=== PATIENT | male | born 1970 | race Two or more races ===

== ENCOUNTER 2017-02-25 17:14 | Emergency (ER) | payer OTHER ==
[~2017-02-25] VITALS: Ht 172.7 cm; Wt 74.8 kg
[~2017-02-25 17:14] MED LIST: NKM
[2017-02-25 17:15] VITALS: BP 144/88
[2017-02-25] MEDS ORDERED: Norco 5mg/325mg tab PO ONE (17:45)
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
[2017-02-25] MEDS ORDERED: IBUPROFEN600 MG ORAL (18:34)
[2017-02-25] MEDS ORDERED: CYCLOBENZAPRINE10 MG ORAL (18:34)
[2017-02-25 19:00] VITALS: BP 136/78
--- NOTE | 2017-02-26 10:10 | Diagnostic Imaging Report ---
Indication: Headache Technique: Contiguous 5 mm thick transaxial imaging of the head obtained in a Siemens Sensation [address] scanner. Soft tissue and bone windows generated. Total Dose length Product (DLP): [address] Dose Index Volume (CTDIvol): 70.38, 0.15 mGy Comparison: none Findings: The size and configuration of the cortical sulci, basal cisterns, and ventricles are within normal limits for age. There is no mass effect, midline shift, or edema identified. There is no evidence of acute hemorrhage or abnormal intra-axial or extra-axial fluid collections. The bones and soft tissues are unremarkable. Impression: No mass effect, edema or acute bleed. [facility] has communicated the preliminary results to the Emergency Department. Their findings are largely concordant with this report. The CT scanner at [facility] is accredited by the [employer] and the scans are performed using dose optimization techniques as appropriate to a performed exam including Automatic Exposure control.
--- NOTE | 2017-02-26 10:10 | Diagnostic Imaging Report ---
Indication: Headache Technique: Contiguous 5 mm thick transaxial imaging of the head obtained in a Siemens Sensation [address] scanner. Soft tissue and bone windows generated. Total Dose length Product (DLP): [address] Dose Index Volume (CTDIvol): 70.38, 0.15 mGy Comparison: none Findings: The size and configuration of the cortical sulci, basal cisterns, and ventricles are within normal limits for age. There is no mass effect, midline shift, or edema identified. There is no evidence of acute hemorrhage or abnormal intra-axial or extra-axial fluid collections. The bones and soft tissues are unremarkable. Impression: No mass effect, edema or acute bleed. [facility] has communicated the preliminary results to the Emergency Department. Their findings are largely concordant with this report. The CT scanner at [facility] is accredited by the [employer] and the scans are performed using dose optimization techniques as appropriate to a performed exam including Automatic Exposure control.
--- NOTE | 2017-02-26 10:20 | Diagnostic Imaging Report ---
Indication: Neck pain. Technique: Continuous helical imaging of the cervical spine was obtained transaxially from the skull base to the upper thoracic spine. 2-D coronal and sagittal reformatted images were obtained. Total Dose length Product (DLP): Refer to the CT head mGycm CT Dose Index Volume (CTDIvol): Refer to the CT head mGy Comparison: None Findings: No acute fracture is identified. Alignment is normal. Vertebral body height and configuration appear normal. The discs are unremarkable in appearance. There is no soft tissue swelling. Impression: No acute injury identified [[facility] has communicated the preliminary results to the Emergency Department. Their findings are largely concordant with this report. The CT scanner at [facility] is accredited by the [employer] and the scans are performed using dose optimization techniques as appropriate to a performed exam including Automatic Exposure control.
--- NOTE | 2017-02-26 10:20 | Diagnostic Imaging Report ---
Indication: Neck pain. Technique: Continuous helical imaging of the cervical spine was obtained transaxially from the skull base to the upper thoracic spine. 2-D coronal and sagittal reformatted images were obtained. Total Dose length Product (DLP): Refer to the CT head mGycm CT Dose Index Volume (CTDIvol): Refer to the CT head mGy Comparison: None Findings: No acute fracture is identified. Alignment is normal. Vertebral body height and configuration appear normal. The discs are unremarkable in appearance. There is no soft tissue swelling. Impression: No acute injury identified [[facility] has communicated the preliminary results to the Emergency Department. Their findings are largely concordant with this report. The CT scanner at [facility] is accredited by the [employer] and the scans are performed using dose optimization techniques as appropriate to a performed exam including Automatic Exposure control.
--- NOTE | 2017-02-26 10:55 | Diagnostic Imaging Report ---
Indication: Back pain Findings: 2 views of the thoracic spine were obtained. Spurs are noted at the vertebral endplates. Alignment is normal. Vertebral body heights and intervertebral disc heights are normal. The posterior elements including the facets are unremarkable. Soft tissues are unremarkable. Impression: No acute injury
--- NOTE | 2017-02-26 13:55 | Diagnostic Imaging Report ---
Indication: Back pain Comparison: None Findings: 2 views of the lumbar spine were obtained. No acute fracture or malalignment is identified. Vertebral body heights and disk spaces are well maintained. Posterior elements are unremarkable. Impression: No acute findings.
== END 2017-02-25 18:45 | disposition home or self-care (01) ==
LOC: EDBD 17:14 → EMR 17:43
DX: S39.92XA Unspecified injury of lower back, initial encounter (principal); W18.30XA Fall on same level, unspecified, initial encounter; Y92.129 Unspecified place in nursing home as the place of occurrence of the external cause; Y99.0 Civilian activity done for income or pay
CPT/HCPCS: 70450; 72020; 72070; 72125; 96372; 99284; J2405